=== PATIENT | female | born 1950 | race Caucasian/White ===

== ENCOUNTER → 2017-12-17 | Outpatient (CLI) | payer BC, OTHER ==
[~2017-12-17] MED LIST: IOPAMIDOL 76% 75 ML INFUS BTL 75 ML ONE; MULT-1335 PO; OMEP-218 PO
--- NOTE | 2017-12-17 14:51 | RADIOLOGY IMAGING REPORT ---
FACILITY: [facility] PATIENT NAME: Stephanie Fraser : 1950 MR: [id number] V: [id number] EXAM DATE: ORDERING PHYSICIAN: MARIAN FAGAN TECHNOLOGIST: Location: [facility] - [place] Patient: Stephanie Fraser : 1950 Visit/Account:[id number] Date of Sevice: 12/17/2017 ABDOMEN/PELVIS WITH CONTRAST HISTORY: Pelvic pain TECHNIQUE: Following administration of IV contrast contiguous axial images acquired through the abdom en/pelvis. Coronal and sagittal reformatting also performed. Dose Lowering Technique One of the following dose optimization techniques was utilized in the performance of this exam: Autom ated exposure control; adjustment of the mA and/or kV according to the patient's size; or use of an i terative reconstruction technique. Specific details can be referenced in the facility's radiology C T exam operational policy. CONTRAST: 75 mL Isovue-370 COMPARISON: None. FINDINGS: Visualized lung bases: Mild linear scarring in the lung bases. There is a 1.4 cm thin-walled air cy st in the inferior right middle lobe Hepatobiliary: Hyperdensity at the gallbladder neck may represent small stones. Liver is enlarged m easuring 20.5 cm in length Spleen: Negative. Adrenals: Negative. Pancreas: Negative. Kidneys ureters or bladder: Subcentimeter hypodensities in the left kidney likely represent cysts alt horacio are too small to characterize. The bladder is decompressed therefore not ideally evaluated. Genitalia: Uterus is anteverted and appears atrophic GI: There is extensive diverticulosis throughout the sigmoid colon with mild generalized wall thicke jerry. Given the clinical history of pelvic pain this likely represents mild diverticulitis. No jemma dence of peridiverticular abscess or free perforation Vessels/spaces/nodes: There are extensive vascular calcifications throughout the abdomen and pelvis there shotty retroperitoneal lymph nodes Bones/soft tissues: There Is mild loss of height of the T11 vertebral body . Cystic changes are see n in the right acetabulum Additional findings: None pertinent. IMPRESSION: Hyperdensity in the gallbladder neck may represent small stones. Hepatomegaly Extensive diverticulosis of the sigmoid colon with mild generalized wall thickening. Given the clini francine history of pelvic pains likely represents mild diverticulitis. No evidence of peridiverticular a bscess or free perforation Extensive vascular calcination occasions of the abdomen and pelvis Report Dictated By: Saba Robles MD at 12/17/2017 2:27 PM Report E-Signed By: Saba Robles MD at 12/17/2017 2:47 PM WSN:CODY
== END ==
LOC: CT 06:53
PROVIDERS: ATTEND Obstetrics & Gynecology
DX: K57.30 Diverticulosis of large intestine without perforation or abscess without bleeding (principal); R16.0 Hepatomegaly, not elsewhere classified
CPT/HCPCS: 36415; 74177; 82565; Q9967

== ENCOUNTER → 2018-01-07 | Outpatient (CLI) | payer OTHER ==
[~2018-01-07] MED LIST changes: +BARIUM SULFATE 176 GM BTL PO ONE; +BARIUM SULFATE 340 GM POWD ONE; -IOPAMIDOL 76% 75 ML INFUS BTL 75 ML ONE; +OMEP40CA48 PO
--- NOTE | 2018-01-07 12:53 | RADIOLOGY IMAGING REPORT ---
FACILITY: [facility] [place] PATIENT NAME: Stephanie Fraser : 1950 MR: [id number] V: [id number] EXAM DATE: ORDERING PHYSICIAN: MARIAN VILLAREAL TECHNOLOGIST: Location: [facility] - [place] Patient: Stephanie Fraser : 1950 Visit/Account:[id number] Date of Sevice: 01/07/2018 Exam type: ESOPHAGRAM History: Dysphagia, GERD Comparison: None. Findings: Fluoroscopy was used for the purposes of an esophagram. Total fluoroscopy time was 1.3 minutes for t otal DAP of 603.18 microGy/m2. Esophageal motility was normal. No evidence for aspiration. There is a small hiatal hernia but no v isible gastroesophageal reflux. Visualized stomach was normal. Patient was able to swallow an 11 mm barium tablet without incident. IMPRESSION: 1. Small hiatal hernia but no visible gastroesophageal reflux. Report Dictated By: Carlo Logan MD at 01/07/2018 12:43 PM Report E-Signed By: Carlo Logan MD at 01/07/2018 12:49 PM WSN:[email or web address]
== END ==
LOC: RAD 01:57
PROVIDERS: ATTEND Surgery
DX: K44.9 Diaphragmatic hernia without obstruction or gangrene (principal)
CPT/HCPCS: 74220

== ENCOUNTER 2018-01-21 00:53 | Day surgery (SDC) | payer MEDICARE, OTHER ==
[~2018-01-21] VITALS: Ht 167.6 cm; Wt 58.5 kg
[~2018-01-21 00:53] MED LIST changes: +ACET500T68 PO; -BARIUM SULFATE 176 GM BTL PO ONE; -BARIUM SULFATE 340 GM POWD ONE; +CAL1TABL14 PO; +CALC600T63 PO; +NAPR220C12 PO; +VAR05PT PO; +VARE1TAB4 PO
[2018-01-21 06:52] VITALS: BP 151/73
[2018-01-21] MEDS ORDERED: LIDOCAINE/SOD BICARB 8.4% SYR ID ONE (07:10)
[2018-01-21] MEDS ORDERED: NORMOSOL R SOLN(*) 1000 ML BAG 1,000 ML IV PRN (07:10)
[2018-01-21 09:24] VITALS: BP 135/63
--- NOTE | 2018-01-21 09:38 | Short(Outpt) Discharge Summary ---
Discharge Summary Reason for Hosp/Final Diag: (1) GERD (gastroesophageal reflux disease) Status: Chronic Hospital Course & Plan: EGD with biopsies and colonoscopy with polypectomy x3 completed without problems. (2) Dysphagia Status: Chronic (3) Cholelithiasis Status: Chronic (4) Diverticulitis large intestine Status: Resolved Departure Discharge to: Home, Self Care Discharge Instructions Home Meds Active Scripts Varenicline Tartrate (CHANTIX) 1 Mg Tablet, 1 TAB PO BID, #60 TAB 5 Refills Start the 1mg tablets after finishing the 0.5mg tablets. Prov:MARIAN VILLAREAL MD 01/13/18 Varenicline Tartrate (CHANTIX) 0.5 Mg Tab, 1 TAB PO QDAY, #11 TAB 0 Refills 0.5mg tab once each day x 3 days, then 0.5mg tab twice each day x 4 days, then start taking the 1mg tabs twice each day Prov:MARIAN VILLAREAL MD 01/13/18 Omeprazole (OMEPRAZOLE) 40 Mg Capsule.dr, 1 CAP PO QDAY, #30 CAP 3 Refills Take 1 capsule on an empty stomach every morning and wait 30 minutes before eating. Prov:MARIAN VILLAREAL MD 12/30/17 Reported Medications Acetaminophen (TYLENOL EXTRA STRENGTH) 500 Mg Tablet, 2 TAB PO Q4H Y for PAIN, TAB 01/16/18 Edgard Cit/Mag/D3/Zn/Innovation Analyst/Nacho/Bor (CITRACAL-VIT D + MAGNESIUM TAB) 1 Each Tablet, 1 EACH PO DAILY 01/16/18 Discontinued Reported Medications Calcium Carbonate (CALCIUM) 600 Mg Tablet, 300 MG PO DAILY 01/10/18 Naproxen Sodium (ALEVE) Unknown Strength Capsule, PO TID, CAPSULE 01/10/18 Multivitamins W-Minerals (Multiple Vitamin) 1 Tab Tablet, 1 TAB PO DAILY, 0 Refills 05/08/11 Omeprazole Magnesium (Prilosec Otc) 20 Mg Tablet., 20 MG PO QDAY Y, 0 Refills 05/08/11 Follow up Referrals: General Surgery - 02/04/18 @ Surgery, General with Marian Villareal Md You have a follow up appointment scheduled with Dr. Villareal on 02/04/18, at 4:30PM. Diet: Regular Activity: As Tolerated Special Instructions: Your upper endoscopy and colonoscopy were completed without any problems and your prep was excellent (Good Job!!). I didn't find anything concerning in your esophagus, stomach, or duodenum but took some biopsies to rule out H.pylori infection and celiac dz. I removed 3 small colon polyps and they were sent to pathology. No other abnormalities were seen in your colon. I will discuss all these results with you when I see you back in my office and we'll discuss where to go from here. Problem Qualifiers (1) GERD (gastroesophageal reflux disease): Esophagitis presence: without esophagitis Qualified Codes: K21.9 - Gastro- esophageal reflux disease without esophagitis (2) Dysphagia: Dysphagia type: esophageal phase Qualified Codes: R13.10 - Dysphagia, unspecified (3) Diverticulitis large intestine: Diverticulitis bleeding: without bleeding Diverticulitis complication: without perforation or abscess Qualified Codes: K57.32 - Diverticulitis of large intestine without perforation or abscess without bleeding MARIAN VILLAREAL MD Jan 21, 2018 09:38
[2018-01-21 09:46] VITALS: BP 149/70
[2018-01-21 10:08] VITALS: BP 150/71
== END 2018-01-21 10:24 | disposition home or self-care (01) ==
LOC: OR 00:53
PROVIDERS: ATTEND Surgery
DX: K63.5 Polyp of colon (principal)
CPT/HCPCS: 87077; 88305